=== PATIENT | female | born 1955 | race Caucasian/White ===

== ENCOUNTER 2016-05-23 17:40 | Emergency (ER) | payer BC ==
[~2016-05-23] VITALS: Wt 90.9 kg
[2016-05-23] MEDS ORDERED: ACETAMINOPHEN 500 MG TAB PO STA (18:18)
[2016-05-23] MEDS ORDERED: IBUPROFEN 600 MG TAB PO ONE (18:30)
[2016-05-23] MEDS ORDERED: DEXAMETHASONE 2 MG TAB PO ONE (18:30)
[2016-05-23] MEDS ORDERED: IBUP-1542 PO (18:31)
[2016-05-23] MEDS ORDERED: OSLT75C PO (18:31)
[2016-05-23] MEDS ORDERED: ACET325T33 PO (18:31)
[2016-05-23] MEDS ORDERED: PROM5SYR2 PO (18:31)
[2016-05-23 18:34] VITALS: BP 136/68; PULSE 98; RESP 16
--- NOTE | 2016-05-23 18:39 | ERD ---
ER Documentation Chief Complaint Date/Time DATE: 05/23/16 TIME: 18:34 Chief Complaint cough, fever, chills HPI Patient is a 60-year-old female with a history of diabetes takes metformin once a day. She has 1 day of sweats chills cough body aches fever. She says she had a history of lupus which is under control and previously she had been on steroids. No other complaints ROS All systems reviewed and are negative except as per history of present illness. Medications Home Meds Active Scripts Promethazine HCl/Codeine (Prometh-Codein 6.25-10 mg/5 ml) 5 Ml Syrup, 5 ML PO Q8 , #180 ML Prov:MONIQUEREBECCA 05/23/16 Oseltamivir Phosphate* (Tamiflu*) 75 Mg Capsule, 75 MG PO BID for 5 Days, CAP Prov:MONIQUE,REBECCA 05/23/16 Acetaminophen* (Tylenol*) 325 Mg Tablet, 3 TAB PO Q8 Y for PAIN AND OR ELEVATED TEMP, #30 TAB Prov:MONIQUE,REBECCA 05/23/16 Ibuprofen* (Motrin*) 600 Mg Tab, 600 MG PO Q8, #15 TAB Prov:REBECCA AMAYA 05/23/16 PMhx/Soc History of Surgery: No Anesthesia Reaction: No Hx Neurological Disorder: No Hx Respiratory Disorders: No Hx Cardiac Disorders: No Hx Psychiatric Problems: No Hx Miscellaneous Medical Probl: Yes (DM) Hx Alcohol Use: No Hx Substance Use: No Hx Tobacco Use: No Smoking Status: Never smoker Physical Exam Vitals Vital Signs Date Time Temp Pulse Resp B/P Pulse Ox O2 Delivery O2 Flow Rate FiO2 05/23/16 18:15 101.7 60 20 177/64 99 Physical Exam Const: [Alert oriented 4, well-nourished well-developed nontoxic- appearing no apparent distress, interacts appropriately] Head: [Normocephalic/atraumatic, no scalp lesions] Eyes: [Normal Conjunctiva, PERRLA, EOMI no conjunctival injection no conjunctival discharge] ENT: [Normal External Ears, Nose and Mouth, no tonsillar exudates no tonsillar erythema no tonsillar edema oropharynx no erythema. bilateral ear canals are patent, bilateral tympanic membranes nonerythematous.] Neck: [Full range of motion. No meningismus. No cervical lymphadenopathy] Resp: [Clear to auscultation bilaterally, no wheezes rhonchi or rales, breathing normally, no tachypnea no nasal flaring no grunting no accessory muscle use no retractions] Cardio: [Regular rate and rhythm, no murmurs] Abd: [Soft, non tender, non distended. Normal bowel sounds, no rebound rigidity or guarding. Normoactive bowel sounds no flank tenderness, negative McBurney's negative Singh sign.] Skin: [No petechiae or rashes, no hives no urticaria no abscess no laceration no new warmth] Back: [No midline or flank tenderness, full range of motion without pain ] Ext: [No cyanosis, clubbing or edema] Neuro: M/S: Alert and oriented 4. Face: EOMI, face and pharynx with normal sensation and function Motor: Normal strength throughout, muscle strength is 5 out of 5 bilateral upper extremity and bilateral lower extremity Sensation: Normal sensation throughout Speech: Normal Cerebel: Normal coordination Normal gait DTR: 2+ and symmetric upper/lower extremities Psych: [Normal Mood and Affect, no suicidal ideation or homicide ideation] Results 24 hrs Current Medications Medications (Trade) Dose Ordered Sig/Salvador Route PRN Reason Start Time Stop Time Status Last Admin Dose Admin Acetaminophen (Tylenol Tab) 1,000 mg ONCE STAT PO 05/23/16 18:18 05/23/16 18:19 UNV Ibuprofen (Motrin) 600 mg ONCE ONCE PO 05/23/16 18:30 05/23/16 18:31 UNV Dexamethasone (Decadron) 10 mg ONCE ONCE PO 05/23/16 18:30 05/23/16 18:31 UNV Clonidine (Catapres) 0.1 mg ONCE ONCE PO 05/23/16 18:30 05/23/16 18:31 UNV Procedures/MDM This is likely a flulike illness for the influenza. She has a fever cough chills body aches most consistent with a viral syndrome. I doubt pneumonia as her lung exam is actually normal currently. She says she feels that she is wheezing so we did give her a stat dose of Decadron here. We will treat empirically with Tamiflu ibuprofen Tylenol Phenergan with codeine. She received ibuprofen and Tylenol here for her fever as well. Less likely to be pneumonia at this point. I doubt meningitis encephalitis lupus cerebritis. ED precautions discussed and follow-up with PCP. Departure Diagnosis: Primary Impression: Flu-like symptoms Additional Impression: High blood pressure Hypertension type: other secondary hypertension Qualified Code: I15.8 - Other secondary hypertension Condition: Stable Patient Instructions: High Blood Pressure (Hypertension), Influenza (Adult) REBECCA AMAYA DO May 23, 2016 18:38
== END 2016-05-23 19:05 | disposition home or self-care (01) ==
LOC: FTE 17:40
DX: R05 Cough (principal); R50.9 Fever, unspecified; E11.9 Type 2 diabetes mellitus without complications; I15.8 Other secondary hypertension; R52 Pain, unspecified; Z79.84 Long term (current) use of oral hypoglycemic drugs
CPT/HCPCS: 99284; Z7610

== ENCOUNTER 2017-03-10 14:28 | Emergency (ER) | payer BC, MEDICAID ==
[~2017-03-10] VITALS: Ht 165.1 cm; Wt 115.0 kg
[~2017-03-10 14:28] MED LIST: ACET325T33 PO; IBUP-1542 PO; OSLT75C PO; PROM5SYR2 PO
[2017-03-10 14:32] VITALS: Ht 165.1 cm; Wt 115.0 kg
[2017-03-10] MEDS ORDERED: IBUPROFEN 800 MG TAB PO ONE (17:00)
[2017-03-10 18:45] VITALS: BP 145/78; PULSE 86; RESP 18; TEMP 97.9
--- NOTE | 2017-03-10 19:16 | RADRPT ---
PROCEDURE: XR Forearm. CLINICAL INDICATION: 61 years of age, female. Pain. Fall. TECHNIQUE: AP and lateral views of the left forearm. COMPARISON: None available. FINDINGS: Negative for evidence of acute fracture. Elbow and wrist are unremarkable. Negative for significant soft tissue swelling. Negative for evidence of radiopaque foreign body. IMPRESSION: Negative for evidence of acute fracture of the left forearm. RPTAT: HCTS Physician Jayson Date Time Electronically viewed and signed by Alexandrea Daniels Physician on 03/10/2017 19:16 CS/
--- NOTE | 2017-03-10 19:17 | RADRPT ---
PROCEDURE: XR Elbow. CLINICAL INDICATION: 61 years of age, female. Pain. Fall. TECHNIQUE: Three views of the left elbow. COMPARISON: None available. FINDINGS: Negative for evidence of acute fracture. Normal alignment. Negative for evidence of elbow joint effusion. Negative for significant soft tissue swelling. IMPRESSION: Negative for evidence of acute fracture or dislocation of the left elbow. RPTAT: HCTS Physician Jayson Date Time Electronically viewed and signed by Alexandrea Daniels Physician on 03/10/2017 19:17 CS/
--- NOTE | 2017-03-10 19:17 | RADRPT ---
PROCEDURE: XR Left Wrist. CLINICAL INDICATION: Trauma. Pain. TECHNIQUE: Four AP, lateral and oblique views of the left wrist were performed. COMPARISON: 08/24/2014 FINDINGS: No acute fracture is identified. Joint relationships are maintained. Bone mineralization is within normal limits. Soft tissues are unremarkable. IMPRESSION: 1. No acute abnormality. RPTAT: HMVK .Rick Grigsby MD, Date Time Electronically viewed and signed by .Rick Grigsby MD, on 03/10/2017 19:16 .K/
--- NOTE | 2017-03-10 19:18 | RADRPT ---
PROCEDURE: XR Shoulder. CLINICAL INDICATION: 61 years of age, female. Pain. Fall. TECHNIQUE: Three views of the left shoulder. Frontal views in internal and external rotation and transscapular Y view. COMPARISON: None available. FINDINGS: Bones are osteopenic. Negative for evidence of acute fracture or dislocation. There is good range of motion in internal and external rotation. Mild osteoarthritis of acromioclavicular joint. Coracoclavicular interval appears normal. There are no periarticular calcifications. The visualized lung is clear. IMPRESSION: Negative for evidence of acute fracture or dislocation of the left shoulder. RPTAT: HCTS Physician Jayson Date Time Electronically viewed and signed by Physician Jayson on 03/10/2017 19:18 /
[2017-03-10] MEDS ORDERED: IBUP800T25 PO (19:21)
[2017-03-10] MEDS ORDERED: HYDR-906 PO (19:21)
--- NOTE | 2017-03-10 19:24 | ERD ---
ER Documentation Chief Complaint Chief Complaint lt wrist pain , from injury x 2 weeks ago HPI This is a 61-year-old female presenting to emergency department with wrist pain after injury 2 weeks ago. Patient states she [place] while [place] a movie theater and landed with her left arm extended. Patient states she is having pain to left wrist and forearm. Patient states pain radiates up to left elbow. No limited mobility. No loss of sensation, numbness or tingling. No erythema or laceration. No bruising. Patient has been taking ibuprofen and Durham with some relief at home. Patient is concerned about fracture. ROS All systems reviewed and are negative except as per history of present illness. Medications Home Meds Active Scripts Hydrocodone/Acetaminophen (Durham 5-325 Tablet) 1 Each Tablet, 1 TAB PO Q6H Y for PAIN, #7 TAB Prov:GABRIELLE YOUNG NP 03/10/17 Ibuprofen* (Motrin*) 800 Mg Tab, 800 MG PO Q6, #30 TAB Prov:GABRIELLE YOUNG NP 03/10/17 Promethazine HCl/Codeine (Prometh-Codein 6.25-10 mg/5 ml) 5 Ml Syrup, 5 ML PO Q8 , #180 ML Prov:REBECCA AMAYA DO 05/23/16 Oseltamivir Phosphate* (Tamiflu*) 75 Mg Capsule, 75 MG PO BID for 5 Days, CAP Prov:REBECCA AMAYA DO 05/23/16 Acetaminophen* (Tylenol*) 325 Mg Tablet, 3 TAB PO Q8 Y for PAIN AND OR ELEVATED TEMP, #30 TAB Prov:REBECCA AMAYA DO 05/23/16 Ibuprofen* (Motrin*) 600 Mg Tab, 600 MG PO Q8, #15 TAB Prov:REBECCA AMAYA DO 05/23/16 Allergies Allergies: Coded Allergies: Sulfa (Sulfonamide Antibiotics) (Verified Allergy, Unknown, swelling, 05/23) metronidazole (Verified Allergy, Unknown, 05/23/16) PMhx/Soc Medical and Surgical Hx: pt denies Medical Hx, pt denies Surgical Hx History of Surgery: No Anesthesia Reaction: No Hx Neurological Disorder: No Hx Respiratory Disorders: No Hx Cardiac Disorders: No Hx Psychiatric Problems: No Hx Miscellaneous Medical Probl: Yes (DM) Hx Alcohol Use: No Hx Substance Use: No Hx Tobacco Use: No Smoking Status: Never smoker Physical Exam Vitals Vital Signs Date Time Temp Pulse Resp B/P Pulse Ox O2 Delivery O2 Flow Rate FiO2 03/10/17 18:45 97.9 86 18 145/78 99 Room Air 03/10/17 14:32 98.1 88 18 146/88 98 Physical Exam Const: No acute distress, alert Head: Atraumatic Eyes: Normal Conjunctiva ENT: Normal External Ears, Nose and Mouth. Neck: Full range of motion..~ No meningismus. Resp: Clear to auscultation bilaterally Cardio: Regular rate and rhythm, no murmurs Abd: Soft, non tender, non distended. Normal bowel sounds Skin: No petechiae or rashes Back: No midline or flank tenderness Ext: No cyanosis, or edema. No erythema or laceration. No ecchymosis. Patient can make a fist and extend all digits on left hand. Radial pulses 2+ bilaterally. Capillary refill less than 3 seconds. Sensation fully intact. No swelling. Neur: Awake and alert Psych: Normal Mood and Affect Results 24 hrs Current Medications Medications (Trade) Dose Ordered Sig/Salvador Route PRN Reason Start Time Stop Time Status Last Admin Dose Admin Ibuprofen (Motrin) 800 mg ONCE ONCE PO 03/10/17 17:00 03/10/17 17:01 DC 03/10/17 18:30 Procedures/MDM [place] [address] Radiology Main Line: [phone] DIAGNOSTIC IMAGING REPORT Patient: BRIAN STOVALL : 1955 Age: 61 Sex: F MR #: [id number] DOS: 03/10/17 165 Ordering MD: GABRIELLE PERAZA NP Location: [facility] Room/Bed: PROCEDURE: XR Left Wrist. CLINICAL INDICATION: Trauma. Pain. TECHNIQUE: Four AP, lateral and oblique views of the left wrist were performed. COMPARISON: 08/24/2014 FINDINGS: No acute fracture is identified. Joint relationships are maintained. Bone mineralization is within normal limits. Soft tissues are unremarkable. IMPRESSION: 1. No acute abnormality. [place] [id number] Radiology Main Line: [phone] DIAGNOSTIC IMAGING REPORT Patient: BRIAN STOVALL : 1955 Age: 61 Sex: F MR #: [id number] DOS: 03/10/17 0000 Ordering MD: GABRIELLE PERAZA NP Location: [facility] Room/Bed: PROCEDURE: XR Forearm. CLINICAL INDICATION: 61 years of age, female. Pain. Fall. TECHNIQUE: AP and lateral views of the left forearm. COMPARISON: None available. FINDINGS: Negative for evidence of acute fracture. Elbow and wrist are unremarkable. Negative for significant soft tissue swelling. Negative for evidence of radiopaque foreign body. IMPRESSION: Negative for evidence of acute fracture of the left forearm. [place] [address] Radiology Main Line: [phone] DIAGNOSTIC IMAGING REPORT Patient: BRIAN STOVALL : 1955 Age: 61 Sex: F MR #: [id number] DOS: 03/10/171655 Ordering MD: GABRIELLE PERAZA NP Location: [facility] Room/Bed: PROCEDURE: XR Elbow. CLINICAL INDICATION: 61 years of age, female. Pain. Fall. TECHNIQUE: Three views of the left elbow. COMPARISON: None available. FINDINGS: Negative for evidence of acute fracture. Normal alignment. Negative for evidence of elbow joint effusion. Negative for significant soft tissue swelling. IMPRESSION: Negative for evidence of acute fracture or dislocation of the left elbow. [place] [address] Radiology Main Line: [phone] DIAGNOSTIC IMAGING REPORT Patient: BRIAN STOVALL : 1955 Age: 61 Sex: F MR #: [id number] DOS: 03/10/171655 Ordering MD: GABRIELLE PERAZA NP Location: [facility] Room/Bed: PROCEDURE: XR Shoulder. CLINICAL INDICATION: 61 years of age, female. Pain. Fall. TECHNIQUE: Three views of the left shoulder. Frontal views in internal and external rotation and transscapular Y view. COMPARISON: None available. FINDINGS: Bones are osteopenic. Negative for evidence of acute fracture or dislocation. There is good range of motion in internal and external rotation. Mild osteoarthritis of acromioclavicular joint. Coracoclavicular interval appears normal. There are no periarticular calcifications. The visualized lung is clear. IMPRESSION: Negative for evidence of acute fracture or dislocation of the left shoulder. MDM: This is a 61-year-old female presenting to emergency department with left wrist and forearm pain 2 weeks after injury. Injury occurred 2 weeks ago. X- ray left wrist reviewed by radiologist as no acute abnormality. X-ray left forearm reviewed by radiologist as negative for evidence of acute fracture of the left forearm. X-ray left elbow reviewed by radiologist as negative for evidence of acute fracture dislocation of left elbow. X-ray left shoulder reviewed by radiologist as negative for evidence of acute fracture dislocation of left shoulder. Patient remains neurovascular intact. She given ibuprofen 800 mg p.o. while in the ED. Patient has Velcro wrist splint she brought from home. Wrist splint applied and patient remains neurovascularly intact. Discussed findings with patient and instructed patient to follow-up with primary care provider or orthopedic physician for further management. Low suspicion for acute dislocation or fracture. Patient likely has wrist sprain. Patient is appropriate for outpatient management will be given prescription for ibuprofen and Durham. Instructed patient to follow-up with primary care provider in the next 2-3 days for reassessment and additional management. Return to ED for any high fever, chest pain, difficulty breathing, shortness breath, wheezing, vomiting, diarrhea, abdominal pain or any new or worsening symptoms. Patient verbalizes understanding. All questions answered at discharge. Disclaimer: Inadvertent spelling and grammatical errors are likely due to EHR/ dictation software use and do not reflect on the overall quality of patient care. Also, please note that the electronic time recorded on this note does not necessarily reflect the actual time of the patient encounter. Departure Diagnosis: Primary Impression: Wrist injury Encounter type: initial encounter Laterality: left Qualified Code: S69.92XA - Injury of left wrist, initial encounter Condition: Stable Patient Instructions: Wrist Sprain Referrals: RUTHANN HOLLEY MD (PCP) [facility] YOU HAVE RECEIVED A MEDICAL SCREENING EXAM AND THE RESULTS INDICATE THAT YOU DO NOT HAVE A CONDITION THAT REQUIRES URGENT TREATMENT IN THE EMERGENCY DEPARTMENT. FURTHER EVALUATION AND TREATMENT OF YOUR CONDITION CAN WAIT UNTIL YOU ARE SEEN IN YOUR DOCTORS OFFICE WITHIN THE NEXT 1-2 DAYS. IT IS YOUR RESPONSIBILITY TO MAKE AN APPOINTMENT FOR FOLOW-UP CARE. IF YOU HAVE A PRIMARY DOCTOR --you should call your primary doctor and schedule an appointment IF YOU DO NOT HAVE A PRIMARY DOCTOR YOU CAN CALL OUR PHYSICIAN REFERRAL HOTLINE AT IF YOU CAN NOT AFFORD TO SEE A PHYSICIAN YOU CAN CHOSE FROM THE FOLLOWING [facility] [address] [facility] [address] [facility] [address] [facility] [address] [facility] [address] [facility]. [facility] [address] [facility]. [facility] YOU HAVE RECEIVED A MEDICAL SCREENING EXAM AND THE RESULTS INDICATE THAT YOU DO NOT HAVE A CONDITION THAT REQUIRES URGENT TREATMENT IN THE EMERGENCY DEPARTMENT. FURTHER EVALUATION AND TREATMENT OF YOUR CONDITION CAN WAIT UNTIL YOU ARE SEEN IN YOUR DOCTORS OFFICE WITHIN THE NEXT 1-2 DAYS. IT IS YOUR RESPONSIBILITY TO MAKE AN APPOINTMENT FOR FOLOW-UP CARE. IF YOU HAVE A PRIMARY DOCTOR --you should call your primary doctor and schedule and appointment IF YOU DO NOT HAVE A PRIMARY DOCTOR YOU CAN CALL OUR PHYSICIAN REFERRAL HOTLINE AT . IF YOU CAN NOT AFFORD TO SEE A PHYSICIAN YOU CAN CHOSE FROM THE FOLLOWING [facility]: [facility] [address] [place] [address] [facility] [address] [place] [address] [facility] [address] [place] [address] [facility] 7 a.m.- 11 p.m. Every Day of the Week NO APPOINTMENT OR AUTHORIZATION NEEDED Additional Instructions: Call your primary care doctor TOMORROW for an appointment during the next 2-3 days.See the doctor sooner or return here if your condition worsens before your appointment time. Return to ED for any high fever, chest pain, difficulty breathing, shortness breath, wheezing, vomiting, diarrhea, abdominal pain or any new or worsening symptoms. GABRIELLE YOUNG NP Mar 10, 2017 19:24
--- NOTE | 2017-03-10 19:24 | ERD ---
ER Documentation Chief Complaint Chief Complaint lt wrist pain , from injury x 2 weeks ago HPI This is a 61-year-old female presenting to emergency department with wrist pain after injury 2 weeks ago. Patient states she fell while [place] a movie theater and landed with her left arm extended. Patient states she is having pain to left wrist and forearm. Patient states pain radiates up to left elbow. No limited mobility. No loss of sensation, numbness or tingling. No erythema or laceration. No bruising. Patient has been taking ibuprofen and [place] with some relief at home. Patient is concerned about fracture. ROS All systems reviewed and are negative except as per history of present illness. Medications Home Meds Active Scripts Hydrocodone/Acetaminophen ([place] 5-325 Tablet) 1 Each Tablet, 1 TAB PO Q6H Y for PAIN, #7 TAB Prov:GABRIELLE YOUNG NP 03/10/17 Ibuprofen* (Motrin*) 800 Mg Tab, 800 MG PO Q6, #30 TAB Prov:GABRIELLE YOUNG NP 03/10/17 Promethazine HCl/Codeine (Prometh-Codein 6.25-10 mg/5 ml) 5 Ml Syrup, 5 ML PO Q8 , #180 ML Prov:REBECCA AMAYA DO 05/23/16 Oseltamivir Phosphate* (Tamiflu*) 75 Mg Capsule, 75 MG PO BID for 5 Days, CAP Prov:REBECCA AMAYA DO 05/23/16 Acetaminophen* (Tylenol*) 325 Mg Tablet, 3 TAB PO Q8 Y for PAIN AND OR ELEVATED TEMP, #30 TAB Prov:REBECCA AMAYA DO 05/23/16 Ibuprofen* (Motrin*) 600 Mg Tab, 600 MG PO Q8, #15 TAB Prov:REBECCA AMAYA DO 05/23/16 Allergies Allergies: Coded Allergies: Sulfa (Sulfonamide Antibiotics) (Verified Allergy, Unknown, swelling, 05/23) metronidazole (Verified Allergy, Unknown, 05/23/16) PMhx/Soc Medical and Surgical Hx: pt denies Medical Hx, pt denies Surgical Hx History of Surgery: No Anesthesia Reaction: No Hx Neurological Disorder: No Hx Respiratory Disorders: No Hx Cardiac Disorders: No Hx Psychiatric Problems: No Hx Miscellaneous Medical Probl: Yes (DM) Hx Alcohol Use: No Hx Substance Use: No Hx Tobacco Use: No Smoking Status: Never smoker Physical Exam Vitals Vital Signs Date Time Temp Pulse Resp B/P Pulse Ox O2 Delivery O2 Flow Rate FiO2 03/10/17 18:45 97.9 86 18 145/78 99 Room Air 03/10/17 14:32 98.1 88 18 146/88 98 Physical Exam Const: No acute distress, alert Head: Atraumatic Eyes: Normal Conjunctiva ENT: Normal External Ears, Nose and Mouth. Neck: Full range of motion..~ No meningismus. Resp: Clear to auscultation bilaterally Cardio: Regular rate and rhythm, no murmurs Abd: Soft, non tender, non distended. Normal bowel sounds Skin: No petechiae or rashes Back: No midline or flank tenderness Ext: No cyanosis, or edema. No erythema or laceration. No ecchymosis. Patient can make a fist and extend all digits on left hand. Radial pulses 2+ bilaterally. Capillary refill less than 3 seconds. Sensation fully intact. No swelling. Neur: Awake and alert Psych: Normal Mood and Affect Results 24 hrs Current Medications Medications (Trade) Dose Ordered Sig/Salvador Route PRN Reason Start Time Stop Time Status Last Admin Dose Admin Ibuprofen (Motrin) 800 mg ONCE ONCE PO 03/10/17 17:00 03/10/17 17:01 DC 03/10/17 18:30 Procedures/MDM [place] [address] Radiology Main Line: [phone] DIAGNOSTIC IMAGING REPORT Patient: BRIAN STOVALL : 1955 Age: 61 Sex: F MR #: [id number] DOS: 03/10/17 165 Ordering MD: GABRIELLE PERAZA NP Location: FTE Room/Bed: PROCEDURE: XR Left Wrist. CLINICAL INDICATION: Trauma. Pain. TECHNIQUE: Four AP, lateral and oblique views of the left wrist were performed. COMPARISON: 08/24/2014 FINDINGS: No acute fracture is identified. Joint relationships are maintained. Bone mineralization is within normal limits. Soft tissues are unremarkable. IMPRESSION: 1. No acute abnormality. [place] [id number] Radiology Main Line: [phone] DIAGNOSTIC IMAGING REPORT Patient: BRIAN STOVALL : 1955 Age: 61 Sex: F MR #: [id number] DOS: 03/10/17 0000 Ordering MD: GABRIELLE PERAZA NP Location: FTE Room/Bed: PROCEDURE: XR Forearm. CLINICAL INDICATION: 61 years of age, female. Pain. Fall. TECHNIQUE: AP and lateral views of the left forearm. COMPARISON: None available. FINDINGS: Negative for evidence of acute fracture. Elbow and wrist are unremarkable. Negative for significant soft tissue swelling. Negative for evidence of radiopaque foreign body. IMPRESSION: Negative for evidence of acute fracture of the left forearm. [place] [address] Radiology Main Line: [phone] DIAGNOSTIC IMAGING REPORT Patient: BRIAN STOVALL : 1955 Age: 61 Sex: F MR #: [id number] DOS: 03/10/171655 Ordering MD: GABRIELLE PERAZA NP Location: FTE Room/Bed: PROCEDURE: XR Elbow. CLINICAL INDICATION: 61 years of age, female. Pain. Fall. TECHNIQUE: Three views of the left elbow. COMPARISON: None available. FINDINGS: Negative for evidence of acute fracture. Normal alignment. Negative for evidence of elbow joint effusion. Negative for significant soft tissue swelling. IMPRESSION: Negative for evidence of acute fracture or dislocation of the left elbow. [place] [address] Radiology Main Line: [phone] DIAGNOSTIC IMAGING REPORT Patient: BRIAN STOVALL : 1955 Age: 61 Sex: F MR #: [id number] DOS: 03/10/171655 Ordering MD: GABRIELLE PERAZA NP Location: FTE Room/Bed: PROCEDURE: XR Shoulder. CLINICAL INDICATION: 61 years of age, female. Pain. Fall. TECHNIQUE: Three views of the left shoulder. Frontal views in internal and external rotation and transscapular Y view. COMPARISON: None available. FINDINGS: Bones are osteopenic. Negative for evidence of acute fracture or dislocation. There is good range of motion in internal and external rotation. Mild osteoarthritis of acromioclavicular joint. Coracoclavicular interval appears normal. There are no periarticular calcifications. The visualized lung is clear. IMPRESSION: Negative for evidence of acute fracture or dislocation of the left shoulder. MDM: This is a 61-year-old female presenting to emergency department with left wrist and forearm pain 2 weeks after injury. Injury occurred 2 weeks ago. X- ray left wrist reviewed by radiologist as no acute abnormality. X-ray left forearm reviewed by radiologist as negative for evidence of acute fracture of the left forearm. X-ray left elbow reviewed by radiologist as negative for evidence of acute fracture dislocation of left elbow. X-ray left shoulder reviewed by radiologist as negative for evidence of acute fracture dislocation of left shoulder. Patient remains neurovascular intact. She given ibuprofen 800 mg p.o. while in the ED. Patient has Velcro wrist splint she brought from home. Wrist splint applied and patient remains neurovascularly intact. Discussed findings with patient and instructed patient to follow-up with primary care provider or orthopedic physician for further management. Low suspicion for acute dislocation or fracture. Patient likely has wrist sprain. Patient is appropriate for outpatient management will be given prescription for ibuprofen and [place]. Instructed patient to follow-up with primary care provider in the next 2-3 days for reassessment and additional management. Return to ED for any high fever, chest pain, difficulty breathing, shortness breath, wheezing, vomiting, diarrhea, abdominal pain or any new or worsening symptoms. Patient verbalizes understanding. All questions answered at discharge. Disclaimer: Inadvertent spelling and grammatical errors are likely due to EHR/ dictation software use and do not reflect on the overall quality of patient care. Also, please note that the electronic time recorded on this note does not necessarily reflect the actual time of the patient encounter. Departure Diagnosis: Primary Impression: Wrist injury Encounter type: initial encounter Laterality: left Qualified Code: S69.92XA - Injury of left wrist, initial encounter Condition: Stable Patient Instructions: Wrist Sprain Referrals: RUTHANN HOLLEY MD (PCP) [facility] YOU HAVE RECEIVED A MEDICAL SCREENING EXAM AND THE RESULTS INDICATE THAT YOU DO NOT HAVE A CONDITION THAT REQUIRES URGENT TREATMENT IN THE EMERGENCY DEPARTMENT. FURTHER EVALUATION AND TREATMENT OF YOUR CONDITION CAN WAIT UNTIL YOU ARE SEEN IN YOUR DOCTORS OFFICE WITHIN THE NEXT 1-2 DAYS. IT IS YOUR RESPONSIBILITY TO MAKE AN APPOINTMENT FOR FOLOW-UP CARE. IF YOU HAVE A PRIMARY DOCTOR --you should call your primary doctor and schedule an appointment IF YOU DO NOT HAVE A PRIMARY DOCTOR YOU CAN CALL OUR PHYSICIAN REFERRAL HOTLINE AT IF YOU CAN NOT AFFORD TO SEE A PHYSICIAN YOU CAN CHOSE FROM THE FOLLOWING [facility] [address] [facility] [address] [facility] [address] [facility] [address] [facility] [address] [facility]. [facility] [address] [facility]. [facility] YOU HAVE RECEIVED A MEDICAL SCREENING EXAM AND THE RESULTS INDICATE THAT YOU DO NOT HAVE A CONDITION THAT REQUIRES URGENT TREATMENT IN THE EMERGENCY DEPARTMENT. FURTHER EVALUATION AND TREATMENT OF YOUR CONDITION CAN WAIT UNTIL YOU ARE SEEN IN YOUR DOCTORS OFFICE WITHIN THE NEXT 1-2 DAYS. IT IS YOUR RESPONSIBILITY TO MAKE AN APPOINTMENT FOR FOLOW-UP CARE. IF YOU HAVE A PRIMARY DOCTOR --you should call your primary doctor and schedule and appointment IF YOU DO NOT HAVE A PRIMARY DOCTOR YOU CAN CALL OUR PHYSICIAN REFERRAL HOTLINE AT . IF YOU CAN NOT AFFORD TO SEE A PHYSICIAN YOU CAN CHOSE FROM THE FOLLOWING [facility]: [facility] [address] [place] [address] [facility] [address] [place] [address] [facility] [address] [place] [address] [facility] Ur[facility] Care 7 a.m.- 11 p.m. Every Day of the Week NO APPOINTMENT OR AUTHORIZATION NEEDED Additional Instructions: Call your primary care doctor TOMORROW for an appointment during the next 2-3 days.See the doctor sooner or return here if your condition worsens before your appointment time. Return to ED for any high fever, chest pain, difficulty breathing, shortness breath, wheezing, vomiting, diarrhea, abdominal pain or any new or worsening symptoms. GABRIELLE YOUNG NP Mar 10, 2017 19:24
--- NOTE | 2017-03-10 19:24 | ERD ---
ER Documentation Chief Complaint Chief Complaint lt wrist pain , from injury x 2 weeks ago HPI This is a 61-year-old female presenting to emergency department with wrist pain after injury 2 weeks ago. Patient states she fell while at a movie theater and landed with her left arm extended. Patient states she is having pain to left wrist and forearm. Patient states pain radiates up to left elbow. No limited mobility. No loss of sensation, numbness or tingling. No erythema or laceration. No bruising. Patient has been taking ibuprofen and [place] with some relief at home. Patient is concerned about fracture. ROS All systems reviewed and are negative except as per history of present illness. Medications Home Meds Active Scripts Hydrocodone/Acetaminophen ([place] 5-325 Tablet) 1 Each Tablet, 1 TAB PO Q6H Y for PAIN, #7 TAB Prov:GABRIELLE YOUNG NP 03/10/17 Ibuprofen* (Motrin*) 800 Mg Tab, 800 MG PO Q6, #30 TAB Prov:GABRIELLE YOUNG NP 03/10/17 Promethazine HCl/Codeine (Prometh-Codein 6.25-10 mg/5 ml) 5 Ml Syrup, 5 ML PO Q8 , #180 ML Prov:REBECCA AMAYA DO 05/23/16 Oseltamivir Phosphate* (Tamiflu*) 75 Mg Capsule, 75 MG PO BID for 5 Days, CAP Prov:REBECCA AMAYA DO 05/23/16 Acetaminophen* (Tylenol*) 325 Mg Tablet, 3 TAB PO Q8 Y for PAIN AND OR ELEVATED TEMP, #30 TAB Prov:REBECCA AMAYA DO 05/23/16 Ibuprofen* (Motrin*) 600 Mg Tab, 600 MG PO Q8, #15 TAB Prov:REBECCA AMAYA DO 05/23/16 Allergies Allergies: Coded Allergies: Sulfa (Sulfonamide Antibiotics) (Verified Allergy, Unknown, swelling, 05/23) metronidazole (Verified Allergy, Unknown, 05/23/16) PMhx/Soc Medical and Surgical Hx: pt denies Medical Hx, pt denies Surgical Hx History of Surgery: No Anesthesia Reaction: No Hx Neurological Disorder: No Hx Respiratory Disorders: No Hx Cardiac Disorders: No Hx Psychiatric Problems: No Hx Miscellaneous Medical Probl: Yes (DM) Hx Alcohol Use: No Hx Substance Use: No Hx Tobacco Use: No Smoking Status: Never smoker Physical Exam Vitals Vital Signs Date Time Temp Pulse Resp B/P Pulse Ox O2 Delivery O2 Flow Rate FiO2 03/10/17 18:45 97.9 86 18 145/78 99 Room Air 03/10/17 14:32 98.1 88 18 146/88 98 Physical Exam Const: No acute distress, alert Head: Atraumatic Eyes: Normal Conjunctiva ENT: Normal External Ears, Nose and Mouth. Neck: Full range of motion..~ No meningismus. Resp: Clear to auscultation bilaterally Cardio: Regular rate and rhythm, no murmurs Abd: Soft, non tender, non distended. Normal bowel sounds Skin: No petechiae or rashes Back: No midline or flank tenderness Ext: No cyanosis, or edema. No erythema or laceration. No ecchymosis. Patient can make a fist and extend all digits on left hand. Radial pulses 2+ bilaterally. Capillary refill less than 3 seconds. Sensation fully intact. No swelling. Neur: Awake and alert Psych: Normal Mood and Affect Results 24 hrs Current Medications Medications (Trade) Dose Ordered Sig/Salvador Route PRN Reason Start Time Stop Time Status Last Admin Dose Admin Ibuprofen (Motrin) 800 mg ONCE ONCE PO 03/10/17 17:00 03/10/17 17:01 DC 03/10/17 18:30 Procedures/MDM [place] [address] Radiology Main Line: [phone] DIAGNOSTIC IMAGING REPORT Patient: BRIAN STOVALL : 1955 Age: 61 Sex: F MR #: [id number] DOS: 03/10/17 165 Ordering MD: GABRIELLE PERAZA NP Location: FTE Room/Bed: PROCEDURE: XR Left Wrist. CLINICAL INDICATION: Trauma. Pain. TECHNIQUE: Four AP, lateral and oblique views of the left wrist were performed. COMPARISON: 08/24/2014 FINDINGS: No acute fracture is identified. Joint relationships are maintained. Bone mineralization is within normal limits. Soft tissues are unremarkable. IMPRESSION: 1. No acute abnormality. [place] [id number] Radiology Main Line: [phone] DIAGNOSTIC IMAGING REPORT Patient: BRIAN STOVALL : 1955 Age: 61 Sex: F MR #: [id number] DOS: 03/10/17 0000 Ordering MD: GABRIELLE PERAZA NP Location: FTE Room/Bed: PROCEDURE: XR Forearm. CLINICAL INDICATION: 61 years of age, female. Pain. Fall. TECHNIQUE: AP and lateral views of the left forearm. COMPARISON: None available. FINDINGS: Negative for evidence of acute fracture. Elbow and wrist are unremarkable. Negative for significant soft tissue swelling. Negative for evidence of radiopaque foreign body. IMPRESSION: Negative for evidence of acute fracture of the left forearm. [place] [address] Radiology Main Line: [phone] DIAGNOSTIC IMAGING REPORT Patient: BRIAN STOVALL : 1955 Age: 61 Sex: F MR #: [id number] DOS: 03/10/171655 Ordering MD: GABRIELLE PERAZA NP Location: FTE Room/Bed: PROCEDURE: XR Elbow. CLINICAL INDICATION: 61 years of age, female. Pain. Fall. TECHNIQUE: Three views of the left elbow. COMPARISON: None available. FINDINGS: Negative for evidence of acute fracture. Normal alignment. Negative for evidence of elbow joint effusion. Negative for significant soft tissue swelling. IMPRESSION: Negative for evidence of acute fracture or dislocation of the left elbow. [place] [address] Radiology Main Line: [phone] DIAGNOSTIC IMAGING REPORT Patient: BRIAN STOVALL : 1955 Age: 61 Sex: F MR #: [id number] DOS: 03/10/171655 Ordering MD: GABRIELLE PERAZA NP Location: FTE Room/Bed: PROCEDURE: XR Shoulder. CLINICAL INDICATION: 61 years of age, female. Pain. Fall. TECHNIQUE: Three views of the left shoulder. Frontal views in internal and external rotation and transscapular Y view. COMPARISON: None available. FINDINGS: Bones are osteopenic. Negative for evidence of acute fracture or dislocation. There is good range of motion in internal and external rotation. Mild osteoarthritis of acromioclavicular joint. Coracoclavicular interval appears normal. There are no periarticular calcifications. The visualized lung is clear. IMPRESSION: Negative for evidence of acute fracture or dislocation of the left shoulder. MDM: This is a 61-year-old female presenting to emergency department with left wrist and forearm pain 2 weeks after injury. Injury occurred 2 weeks ago. X- ray left wrist reviewed by radiologist as no acute abnormality. X-ray left forearm reviewed by radiologist as negative for evidence of acute fracture of the left forearm. X-ray left elbow reviewed by radiologist as negative for evidence of acute fracture dislocation of left elbow. X-ray left shoulder reviewed by radiologist as negative for evidence of acute fracture dislocation of left shoulder. Patient remains neurovascular intact. She given ibuprofen 800 mg p.o. while in the ED. Patient has Velcro wrist splint she brought from home. Wrist splint applied and patient remains neurovascularly intact. Discussed findings with patient and instructed patient to follow-up with primary care provider or orthopedic physician for further management. Low suspicion for acute dislocation or fracture. Patient likely has wrist sprain. Patient is appropriate for outpatient management will be given prescription for ibuprofen and [place]. Instructed patient to follow-up with primary care provider in the next 2-3 days for reassessment and additional management. Return to ED for any high fever, chest pain, difficulty breathing, shortness breath, wheezing, vomiting, diarrhea, abdominal pain or any new or worsening symptoms. Patient verbalizes understanding. All questions answered at discharge. Disclaimer: Inadvertent spelling and grammatical errors are likely due to EHR/ dictation software use and do not reflect on the overall quality of patient care. Also, please note that the electronic time recorded on this note does not necessarily reflect the actual time of the patient encounter. Departure Diagnosis: Primary Impression: Wrist injury Encounter type: initial encounter Laterality: left Qualified Code: S69.92XA - Injury of left wrist, initial encounter Condition: Stable Patient Instructions: Wrist Sprain Referrals: RUTHANN HOLLEY MD (PCP) [facility] YOU HAVE RECEIVED A MEDICAL SCREENING EXAM AND THE RESULTS INDICATE THAT YOU DO NOT HAVE A CONDITION THAT REQUIRES URGENT TREATMENT IN THE EMERGENCY DEPARTMENT. FURTHER EVALUATION AND TREATMENT OF YOUR CONDITION CAN WAIT UNTIL YOU ARE SEEN IN YOUR DOCTORS OFFICE WITHIN THE NEXT 1-2 DAYS. IT IS YOUR RESPONSIBILITY TO MAKE AN APPOINTMENT FOR FOLOW-UP CARE. IF YOU HAVE A PRIMARY DOCTOR --you should call your primary doctor and schedule an appointment IF YOU DO NOT HAVE A PRIMARY DOCTOR YOU CAN CALL OUR PHYSICIAN REFERRAL HOTLINE AT IF YOU CAN NOT AFFORD TO SEE A PHYSICIAN YOU CAN CHOSE FROM THE FOLLOWING [facility] [address] [facility] [address] [facility] [address] [facility] [address] [facility] [address] [facility]. [facility] [address] [facility]. [facility] YOU HAVE RECEIVED A MEDICAL SCREENING EXAM AND THE RESULTS INDICATE THAT YOU DO NOT HAVE A CONDITION THAT REQUIRES URGENT TREATMENT IN THE EMERGENCY DEPARTMENT. FURTHER EVALUATION AND TREATMENT OF YOUR CONDITION CAN WAIT UNTIL YOU ARE SEEN IN YOUR DOCTORS OFFICE WITHIN THE NEXT 1-2 DAYS. IT IS YOUR RESPONSIBILITY TO MAKE AN APPOINTMENT FOR FOLOW-UP CARE. IF YOU HAVE A PRIMARY DOCTOR --you should call your primary doctor and schedule and appointment IF YOU DO NOT HAVE A PRIMARY DOCTOR YOU CAN CALL OUR PHYSICIAN REFERRAL HOTLINE AT . IF YOU CAN NOT AFFORD TO SEE A PHYSICIAN YOU CAN CHOSE FROM THE FOLLOWING [facility]: [facility] [address] [place] [address] [facility] [address] [place] [address] [facility] [address] [place] [address] [facility] Urgent Care 7 a.m.- 11 p.m. Every Day of the Week NO APPOINTMENT OR AUTHORIZATION NEEDED Additional Instructions: Call your primary care doctor TOMORROW for an appointment during the next 2-3 days.See the doctor sooner or return here if your condition worsens before your appointment time. Return to ED for any high fever, chest pain, difficulty breathing, shortness breath, wheezing, vomiting, diarrhea, abdominal pain or any new or worsening symptoms. GABRIELLE YOUNG NP Mar 10, 2017 19:24
== END 2017-03-10 19:31 | disposition home or self-care (01) ==
LOC: FTE 14:28
DX: S69.92XA Unspecified injury of left wrist, hand and finger(s), initial encounter (principal); E11.9 Type 2 diabetes mellitus without complications; W18.39XA Other fall on same level, initial encounter; Y92.9 Unspecified place or not applicable
CPT/HCPCS: 73030; 73080; 73090; 73110; Z7502; Z7610

== ENCOUNTER 2017-06-03 06:59 | Day surgery (SDC) | END 2017-06-03 14:15 | disposition home or self-care (01) ==

== ENCOUNTER 2017-07-04 09:09 | Day surgery (SDC) | END 2017-07-04 17:22 | disposition home or self-care (01) ==

== ENCOUNTER 2018-12-26 17:36 | Emergency (ER) | payer OTHER ==
[~2018-12-26] VITALS: Ht 165.1 cm; Wt 116.0 kg
[~2018-12-26 17:36] MED LIST changes: -ACET325T33 PO; +ATOR20TA38 PO; +BIOT10006 PO; +CALC-74 PO; +CHOL200073 PO; +CIPR500T4 PO; +FOLI1TAB PO; +GLUC100015 PO; +HYDR-4011 PO; -IBUP-1542 PO; +METF-849 PO; -OSLT75C PO; -PROM5SYR2 PO; +VIT1TABL46 PO
[2018-12-26 17:58] VITALS: Ht 165.1 cm; Wt 116.0 kg
[2018-12-26] MEDS ORDERED: ONDANSETRON 4 MG INJ IV STA (22:45)
[2018-12-26] MEDS ORDERED: morphine 4 MG/ML VIAL IV STA (22:45)
[2018-12-26] MEDS ORDERED: SOD CHLORIDE 0.9% 1,000 ML IV STA (22:45)
[2018-12-27] MEDS ORDERED: CEFTRIAXONE 1 GM/50 ML (PMX) 50 ML IVPB ONE (01:00)
[2018-12-27] MEDS ORDERED: hydrALAzine 20 MG INJ IV ONE (02:00)
[2018-12-27 02:20] VITALS: BP 170/99; PULSE 85; RESP 16
== END 2018-12-27 02:31 | disposition home or self-care (01) ==
LOC: E/R 17:36
DX: R10.31 Right lower quadrant pain (principal); R11.0 Nausea; Z79.84 Long term (current) use of oral hypoglycemic drugs
CPT/HCPCS: 36415; 80053; 81001; 83690; 85025; 96374; 96375; J0360; J0696; J7030; Z7502